=== PATIENT | male | born 1975 | race Caucasian/White ===

== ENCOUNTER 2018-02-14 19:04 | Emergency (ER) | payer SELFPAY ==
[~2018-02-14 19:04] MED LIST: AMOXICILLIN500 M2 PO; DELTASONE20 M1 PO; Motrin,Rufen800 MG PO; PENICILLIN VK500 MG PO; PREDNISONE10 MG PO; PRINIVIL10 MG PO; ULTRAM50 MG PO
== END 2018-02-14 19:13 | disposition left against medical advice (07) ==
LOC: ED 19:04
DX: M79.671 Pain in right foot (principal); Z88.6 Allergy status to analgesic agent